=== PATIENT | female | born 1955 | race Caucasian/White ===

== ENCOUNTER 2022-07-22 01:34 | Day surgery (SDC) | payer MEDICARE, SELFPAY ==
--- NOTE | 2022-07-15 14:12 | PC.NURSE ---
Report to the Outpatient Waiting Room, entrance under the green pavilion located off [facility], at time _1300 on date _07/22/22 . Planned Procedure Time: _1500 . Time changes happen often and if your time is changed the preop area will call you the afternoon before. - You and your visitor will be asked to self-screen and do not enter if you have any COVID symptoms. - A mask is optional within the hospital at this time. Patients may have clear liquids (water, carbonated beverages, clear teas, apple juice) until 3 hours prior to surgery with a maximum of 20 ounces. - No food from midnight until time of surgery - Infants may have breast milk until 4 hours before surgery, formula 6 hours prior to surgery. - Children will be allowed to drink immediately following surgery. If applicable, please bring a bottle or sippy cup to assist with drinking. Juice, water, soda, and popsicles are readily available. For infants on formula, please bring formula the day of surgery. Pacifiers are allowed. Take the following medications with a SIP of water the morning of surgery: __ADVAIR INHALER DO NOT STOP ANY OF YOUR OTHER PRESCRIPTION MEDICATIONS PRIOR TO SURGERY ?EXCEPT THE FOLLOWING Medications to discontinue per physician ___PT STATES LAST DOSE OF ALL VITAMINS/SUPPLEMENTS AND ASPIRIN WAS 07/13/22 Please no make-up, nail occitan, hairspray, perfume, deodorant, or body powder the day of surgery. No jewelry (including any body piercings) or valuables the day of surgery, leave them at home. Please take a shower or bath the night before, or the morning of, surgery with an antibacterial soap. Wear comfortable, loose fitting clothing. Children are encouraged to wear pajamas. - Jewelry must be removed prior to entering the operating room. Rings and piercings that are not removed may be cut off. - The hospital will not accept responsibility for valuables. - Please leave all valuables, including medications, at home the day of surgery. If you are going home after surgery, a licensed dump truck driver must drive you home. - NO public transportation without another adult if you receive anesthesia. - We recommend that an adult stay with you for 24 hours following discharge. - We also recommend that you do not drive, make important decision, drink alcoholic beverages, or take any drugs that were not prescribed by your health care provider for at least 24 hours after your discharge time. For Pediatric surgeries, we recommend two adults accompany the child home. Follow any additional instructions given to you from your surgeon. If you or anyone in your household have experienced Covid symptoms in the past week, please notify your surgeon or the nurse liaison at the phone number below for possible testing. Telephone instructions given to __PATIENT and asked if any additional questions and then verbalized understanding. Patient advised to call surgeon office or pre surgery nurse liaison [phone] if any additional questions.
[2022-07-15 14:27] VITALS: BMI 25.0
[2022-07-22] VITALS (7 sets, daily range): BP systolic 109–161; BP diastolic 57–88; PULSE 50–80; RESP 12–20; TEMP 36.1–36.3; O2SAT 95–100
--- NOTE | 2022-07-22 12:04 | WPDHPUPDATE1 ---
History and Physical Update Update Date/Time: 07/22/22 12:04 History and Physical has been reviewed, including an updated exam of the patient. There are NO changes in the patient's condition. Risks, benefits, and alternatives have been discussed and questions answered. Patient agrees to proceed with procedure.
[2022-07-22] MEDS: LACTATED RINGERS 1,000 ML 30 ML IV CONT ×2 (13:42→16:44)
[2022-07-22] MEDS: KETOROLAC 15 MG/ML VIAL (*BKC) IV PUSH (13:43)
--- NOTE | 2022-07-22 14:08 | WPDANESEPPF ---
Anes - Initial Pre Proc Eval Procedure: Operation Date: 07/22/22 15:00 Proposed Procedures p Right Knee Arthroscopy, Partial Medial Meniscectomy, - Clinton Mares MD s Right Ganglion Cyst Removal of Ring Finger - Clinton Mares MD Date/Time: 07/22/22 14:08 Surgeon: Clinton Mares MD Pre Op Diagnosis: rt kne medial meniscus tear,rt ring fing gang cyst Patient Data Age: 66 Gender: F Height: 1.7 m Weight: 74.2 kg Last Vital Signs Temp 36.1 C L 07/22/22 13:01 Pulse 64 07/22/22 13:01 Resp 16 07/22/22 13:01 BP 149/59 H 07/22/22 13:01 Pulse Ox 99 07/22/22 13:01 O2 Del Method Room Air 07/22/22 13:01 Allergies Allergy/AdvReac Type Severity Reaction Status Date / Time Gadolinium-Containing Allergy Severe Swelling Verified 07/22/22 13:27 Contrast Medi of Lip/Tongue/Throat shrimp Allergy Severe lips Verified 07/22/22 13:27 swelling codeine Allergy Intermediate Nausea Verified 07/22/22 13:27 hydrocodone Allergy Intermediate Hives Verified 07/22/22 13:27 latex Allergy Intermediate lips iching Verified 07/22/22 13:27 meperidine Allergy Intermediate Hives Verified 07/22/22 13:27 oxycodone [From Percocet] Allergy Intermediate Hives Verified 07/22/22 13:27 acetaminophen [From Percocet] Allergy Mild Other Verified 07/22/22 13:27 pantoprazole [From Protonix] Allergy Mild Unknown Verified 07/22/22 13:27 sulfamethoxazole Allergy Mild Unknown Verified 07/22/22 13:27 [From Bactrim] tetracycline Allergy Mild Unknown Verified 07/22/22 13:27 trimethoprim [From Bactrim] Allergy Mild Unknown Verified 07/22/22 13:27 CLAM CHOWDER Allergy Severe lip Uncoded 07/22/22 13:27 swelling DATES Allergy Severe Swelling Uncoded 07/22/22 13:27 of Lip/Tongue/Throat FIGS Allergy Severe Swelling Uncoded 07/22/22 13:27 of Lip/Tongue/Throat Contrast Media Allergy Mild Unknown Uncoded 07/22/22 13:27 mold Allergy Mild Sneezing Uncoded 07/22/22 13:27 PANTOPRAZOLE SODIUM Allergy Mild Unknown Uncoded 07/22/22 13:27 Home Medications Medication Instructions Recorded Confirmed Type aspirin 81 mg tablet,delayed 81 mg PO DAILY 05/17/22 07/22/22 History release (Adult Low Dose Aspirin) calcium carbonate 600 mg calcium 600 mg PO BID 05/17/22 07/22/22 History (1,500 mg) tablet (Calcium) cetirizine 10 mg capsule (Zyrtec) 10 mg PO DAILY 05/17/22 07/22/22 History cholecalciferol (vitamin D3) 10 10 mcg PO DAILY 05/17/22 07/22/22 History mcg (400 unit) capsule coenzyme Q10 100 mg capsule 100 mg PO DAILY 05/17/22 07/22/22 History cranberry extract 425 mg capsule 425 mg PO BID 05/17/22 07/22/22 History famotidine 20 mg tablet 20 mg PO DAILY 05/17/22 07/22/22 History fluticasone prop.50 mcg 1 spray intranasal DAILY 05/17/22 07/22/22 History spray,suspen-sod.chloride 0.9% nasal spray kit lecithin 1,200 mg capsule 1,200 mg PO DAILY 05/17/22 07/22/22 History losartan 25 mg tablet 25 mg PO BID 05/17/22 07/22/22 History magnesium oxide 400 mg (241.3 mg 400 mg PO DAILY 05/17/22 07/22/22 History magnesium) tablet multivitamin 1 tablet PO DAILY 05/17/22 07/22/22 History alfalfa 450 mg tablet 425 mg PO DAILY 06/19/22 07/22/22 History antiarthritic combination no.2 900 900 mg PO DAILY 06/19/22 07/22/22 History mg tablet (glucosamine-chondroitin) chlorpheniramine maleate 4 mg 4 mg PO Q6H PRN Allergy Symptoms 06/19/22 07/15/22 History tablet (Allergy (chlorpheniramine)) garlic 500 mg capsule 500 mg PO DAILY 06/19/22 07/22/22 History olive leaf extract 250 mg capsule 250 mg PO DAILY 06/19/22 07/22/22 History turmeric 400 mg capsule 400 mg PO DAILY 06/19/22 07/22/22 History fluticasone 100 mcg-salmeterol 50 1 inh inhalation Q12H 07/15/22 07/22/22 History mcg/dose blistr powdr for inhalation (Advair Diskus) Patient hx anesthesia problems: none Family hx anesthesia problems: none Results Review: All pre-operative results and documents have been reviewed as part of the pr
[2022-07-22] MEDS: FAMOTIDINE 20 MG/2 ML VIAL IV PUSH (14:20)
[2022-07-22] MEDS: ONDANSETRON INJ 4 MG/2 ML VIAL IV PUSH ×2 (14:20)
[2022-07-22] MEDS: ceFAZolin 2 GM/D5W 50 ML 2 GM/50 ML BAG IVPB (15:37)
[2022-07-22] MEDS: BUPIVACAINE/EPINEPHRINE 0.5% 50 ML VIAL 30 ML INFILTRATE (16:10)
--- NOTE | 2022-07-22 16:46 | W.PM.PROC2 ---
Procedure Note - Detailed Date of Procedure 07/22/22 Pre-op Diagnosis rt knee medial meniscus tear,rt ring finger ganglion cyst Post-op Diagnosis Same Procedure Performed 1. Arthroscopic partial medial meniscectomy, right knee. 2. Ganglion cyst excision right ring finger PIP joint. Surgeon Clinton Mares MD Intelligence Intern Sujatha Serrano PA-C Anesthesia General Findings Tiny ganglion dorsal PIP joint. No other significant findings. Complex posterior-medial medial meniscus tear. Moderate degeneration of the meniscus. 50% excision. The remaining meniscus was healthy. No significant arthritis in any compartment. Grade I chondromalacia of the femur. Description of Procedure The patient was identified and the surgical site confirmed and signed in the preoperative holding area. Antibiotics were started per protocol. She was brought to the operative room and transferred to the OR table. A general anesthetic was administered. Supine position with the operative lower extremity position in the leg mauricio after placement of a well padded tourniquet. The leg support was lowered and the contralateral limb was supported with a soft bolster. The knee was prepped and draped in the usual sterile fashion. A time-out was performed. The portal sites were marked and infiltrated with 0.5% Marcaine 20 mL. The limb was exsanguinated and the tourniquet inflated to 300 mL Hg. Standard inferolateral and inferomedial portals were established. Inflow was obtained with the saline pump. The camera was introduced. Diagnostic inspection of the joint was accomplished. The meniscus was debrided with the arthroscopic shaver and punches until stable. The arthroscopic instruments were removed. The tourniquet released and wounds closed with subcutaneous 4-0 Monocryl absorbable suture. Steri strips and a sterile dressing were applied. A light elastic wrap was placed. Attention was turned to the right hand 4th finger. The tiny cyst was just palpable. The limb was exsanguinated and the tourniquet inflated to 200 mmHg. A transverse incision was created superficially over the dorsum of the joint. Blunt dissection with the tenotomy scissors was brought down to the central slip which was incised longitudinally for several mm over the small cyst. Joint fluid and dorsal capsule was excised along with the cyst. The capsular split was repaired with 4-0 Monocryl. The tourniquet was released. There was no significant bleeding. The skin was closed with 4-0 nylon suture. A sterile dressing was applied. The patient was extubated and brought to the recovery room in stable condition. Estimated Blood Loss 5 Drains No Complications No immediate complications Condition Stable Disposition PACU [facility] Billing Surgery - Charge Forward: Surgery Billing
--- NOTE | 2022-07-22 17:11 | SUR.PHASEI ---
1711: Simple mask removed.
--- NOTE | 2022-07-22 18:36 | SUR.PHASEII ---
1825: Vitals are stable. Patient is unhooked from monitors and getting dressed.
== END 2022-07-22 18:40 | disposition home or self-care (01) ==
PROVIDERS: Visit Provider Orthopaedic Surgery
PROC: (CPT 29870; principal; 2022-07-22 15:00)
PROC: (CPT 29881; 2022-07-22 15:00)
DX: S83.231A Complex tear of medial meniscus, current injury, right knee, initial encounter (principal); X50.0XXA Overexertion from strenuous movement or load, initial encounter; M94.261 Chondromalacia, right knee; M67.441 Ganglion, right hand; I50.9 Heart failure, unspecified; J45.909 Unspecified asthma, uncomplicated; I73.9 Peripheral vascular disease, unspecified
CPT/HCPCS: 29881; 26160; J0690; J1200; J1885; J2250; J2405; J2704; J3010; J7120